=== PATIENT | male | born 1965 | race Caucasian/White ===

== ENCOUNTER → 2025-03-17 | Outpatient (CLI) | payer BC, SELFPAY | END | disposition home or self-care (01) | LOC: CT 09:45 | PROVIDERS: PCP Family Medicine; Referring Provider Physician Assistant; Visit Provider Physician Assistant | DX: I25.10 Atherosclerotic heart disease of native coronary artery without angina pectoris (principal); E78.2 Mixed hyperlipidemia | CPT/HCPCS: 75571; 76380 ==